=== PATIENT | female | born 1950 | race Caucasian/White ===

== ENCOUNTER 2017-05-11 17:51 | Observation (INO) | payer OTHER ==
[~2017-05-11] VITALS: Ht 167.6 cm; Wt 101.2 kg
--- NOTE | ~2017-05-11 | EKG ---
[place] [address] [facility] [place] [address] ELECTROCARDIOGRAM REPORT Name: MIRIAM BARRIENTOS Room #: 302-P [facility].R.#: [id number] Admission: 05/11/17 Attend Phys: Xavi Oakes MD Discharge: Date of : 48 Report #: [id number] THIS REPORT FOR: //name// [facility] ED Test Date: 2017-05-11 Test Time: 18:10:31 Pat Name: MIRIAM BARRIENTOS Department: Room: [facility] Gender: F [employer] Lace: ANSON Lopez : 1950 Requested By: Ryan Carty Order Number: [id number] MD: Oswaldo Key Measurements Intervals [place] Rate: 71 P: 48 [place]: 184 QRS: 39 QRSD: 107 T: 59 QT: 380 QTc: 413 Interpretive Statements Sinus rhythm Low voltage, precordial leads No previous ECG available for comparison Electronically Signed On 05-12-2017 8:25:11 CDT by Oswaldo Key [email or web address] <ELECTRONICALLY SIGNED> By: Oswaldo Key MD, [facility] 05/12/17 0825 181 09 Oswaldo Key MD, FACC /EPI
[2017-05-11 18:06] VITALS: BP 137/102
[2017-05-11 18:59] LABS: URINE BILIRUBIN NEGATIVE (Negative); URINE BLOOD 1+ (Negative); URINE COLOR YELLOW; URINE GLUCOSE-RANDOM* NEGATIVE (Negative); URINE KETONES NEGATIVE (Negative); URINE NITRITE NEGATIVE (Negative); URINE PROTEIN (DIPSTICK) NEGATIVE (Negative); URINE SPECIFIC GRAVITY <= 1.005 (1.003-1.035); URINE UROBILINOGEN 0.2 E.U./dl (0.2-1.0)
[2017-05-11 19:07] LABS: AMP/METHAMP Negative (Negative); BARBITURATES Negative (Negative); BENZODIAZEPINES Negative (Negative); COCAINE Negative (Negative); METHADONE Negative (Negative); OPIATES Negative (Negative); PCP Negative (Negative); THC Negative (Negative)
[2017-05-11 19:09] LABS: BACTERIA 1-9 Few /HPF (None Seen); CASTS None Seen /LPF (None Seen); CRYSTALS None Seen /LPF (None Seen); SQUAMOUS 0-3 Few /LPF (0-3); URINE RBC 0-2 Rare /HPF (0-2); URINE WBC 0-5 Rare /HPF (0-5)
[2017-05-11 20:00] LABS: ABSOLUTE NEUTROPHILS 7.8 thou/uL (1.4-8.2); BASOPHILS 0.8 % (0.0-2.0); EOSINOPHILS 0.8 % (0.0-3.0); HEMATOCRIT 37.4 % (37.0-47.0); HEMOGLOBIN 12.6 gm/dL (12.0-15.0); LYMPHOCYTES 14.3 % (24.0-44.0); MCH 29.3 pg (26.0-34.0); MCHC 33.6 g/dL (28.0-37.0); MCV 87.3 fL (80.0-100.0); MONOCYTES 5.4 % (1.0-8.0); PLATELET COUNT 246 thou/uL (150-400); POLYS 78.7 % (36.0-66.0); RBC 4.29 mil/uL (4.20-5.00); RDW 13.4 % (10.5-14.5); WBC 9.9 thou/uL (4.0-11.0)
[2017-05-11 20:15] LABS: ANION GAP 9 mmol/L (7-16); BUN 24 mg/dL (7-18); CALCIUM 9.4 mg/dL (8.5-10.1); CHLORIDE 103 mmol/L (98-107); CO2 28 mmol/L (21-32); GLUCOSE 112 mg/dL (74-106); POTASSIUM 3.9 mmol/L (3.5-5.1); SODIUM 140 mmol/L (136-145)
[2017-05-11 20:21] LABS: MANUAL DIFF NO
[2017-05-11 20:22] LABS: ALBUMIN 4.2 g/dL (3.4-5.0); ALKALINE PHOSPHATASE 116 U/L (46-116); SALICYLATE < 2.8 mg/dL (2.8-20.0); SGOT 19 U/L (15-37); SGPT 28 U/L (30-65); TOTAL BILIRUBIN 0.3 mg/dL (<0.1-1.0); TOTAL PROTEIN 7.8 g/dL (6.4-8.2); TROPONIN-I < 0.04 ng/mL (<0.04-0.07)
[2017-05-11 20:36] LABS: ACETAMINOPHEN < 2 ug/mL (10-30)
[2017-05-11 21:00] VITALS: BP 144/68
[2017-05-11 21:30] VITALS: BP 141/72
[2017-05-11] MEDS ORDERED: BENTYL 20 MG TA20 M1 PO (23:12)
[2017-05-11] MEDS ORDERED: MOBIC15 MG PO (23:12)
[2017-05-11] MEDS ORDERED: ASPIR 8181 MG PO (23:13)
[2017-05-12] VITALS: BP 138/78
[2017-05-12 03:40] VITALS: BP 148/77
[2017-05-12 07:21] VITALS: BP 146/80
[2017-05-12] MEDS ORDERED: LEVOTHYROXIN0.112 M1 PO (08:01)
[2017-05-12] MEDS ORDERED: ZOCOR20 MG PO (08:01)
[2017-05-12] MEDS ORDERED: ZESTORETIC 20-1 EACH PO (08:01)
[2017-05-12] MEDS ORDERED: ZESTORETIC 20-1 EAC2 PO (08:02)
[2017-05-12 09:58] LABS: CHOLESTEROL 205 mg/dL (<200); HDL CHOLESTEROL 45 mg/dL (>40); LDL CHOLESTEROL 110 mg/dL (<100); TC:HDL 4.6 Ratio (Not establshd); TRIGLYCERIDE 253 mg/dL (<150); VLDL 51 mg/dL (<40)
[2017-05-12 12:04] LABS: FOLIC ACID 14.9 ng/mL (8.6-58.9)
[2017-05-12] MEDS ORDERED: ASPIRIN325 PO (21:38)
[2017-05-12 21:47] VITALS: BP 146/80
[2017-05-13 01:11] LABS: GLYCOHEMOGLOBIN (HGB A1C) 5.6 % (4.8-5.6)
[2017-05-14 22:06] LABS: ALPHA TOCOPHEROL 16.4 mg/L (6.5-21.5)
== END 2017-05-12 22:40 | disposition home or self-care (01) ==
LOC: ER 17:51 → EROBS 20:36 → 3N 21:00
PROVIDERS: Emergency Medicine; Nurse Practitioner Acute Care; Psychiatry & Neurology Neurology
DX: R41.3 Other amnesia (principal); I10 Essential (primary) hypertension; E78.5 Hyperlipidemia, unspecified; E03.9 Hypothyroidism, unspecified; F80.82 Social pragmatic communication disorder